=== PATIENT | female | born 1960 | race Caucasian/White ===

== ENCOUNTER 2017-09-25 09:26 | Day surgery (SDC) | payer BC ==
[2017-09-25] MEDS ORDERED: LIDOCAINE 2% (SDV) 5 ML INJ (09:59)
[2017-09-25] MEDS ORDERED: PROPOFOL 40 ML (09:59)
== END 2017-09-25 16:19 | disposition home or self-care (01) ==
LOC: GIL 09:26
DX: K22.2 Esophageal obstruction (principal); K20.9 Esophagitis, unspecified; K44.9 Diaphragmatic hernia without obstruction or gangrene; K29.70 Gastritis, unspecified, without bleeding
CPT/HCPCS: 43239; 88305

== ENCOUNTER 2017-11-07 05:42 | Day surgery (SDC) | payer BC ==
[~2017-11-07 05:42] MED LIST: SOD CHLORIDE 0.9% 1,000 ML IV
[2017-11-07 07:11] LABS: ADD MAN DIFF? NO
[2017-11-07] MEDS ORDERED: HEPARIN 1000 UNITS/ML 10 ML INJ (07:11)
[2017-11-07] MEDS ORDERED: VERAPAMIL 5 MG INJ (07:11)
[2017-11-07] MEDS ORDERED: MIDAZOLAM 1 MG/ML 2 ML INJ (07:11)
[2017-11-07] MEDS ORDERED: NITROGLYCERIN (IC) 100 MCG/ML INJ (07:11)
[2017-11-07] MEDS ORDERED: FENTAnyl 50 MCG/ML VIAL (07:11)
[2017-11-07 07:18] LABS: BASOPHIL # 0.1 10^3/ul (0.0-0.1); BASOPHILS % 0.8 % (0.0-2.0); EOSINOPHILS # 0.2 10^3/ul (0.0-0.5); EOSINOPHILS % 2.1 % (0.0-7.0); HEMATOCRIT 46.4 % (37.0-47.0); HEMOGLOBIN 15.9 g/dl (12.0-16.0); LYMPHOCYTES # 3.6 10^3/ul (0.8-2.9); LYMPHOCYTES % 47.8 % (15.0-51.0); MEAN CORPUSCULAR HEMOGLOBIN 30.5 pg (29.0-33.0); MEAN CORPUSCULAR HGB CONC 34.3 g/dl (32.0-37.0); MEAN CORPUSCULAR VOLUME 89.1 fl (82.0-101.0); MEAN PLATELET VOLUME 10.8 fl (7.4-10.4); MONOCYTE # 0.7 10^3/ul (0.3-0.9); MONOCYTES % 8.6 % (0.0-11.0); NEUTROPHIL # 3.1 10^3/ul (1.6-7.5); NEUTROPHILS % 40.6 % (39.0-77.0); PLATELET COUNT 248 10^3/UL (140-415); RED BLOOD COUNT 5.21 10^6/ul (4.20-5.40); RED CELL DISTRIBUTION WIDTH 13.8 % (11.5-14.5)
[2017-11-07 07:18] LABS: WHITE BLOOD COUNT 7.6 10^3/ul (4.8-10.8)
[2017-11-07] MEDS ORDERED: IODIXANOL LOCM 100 ML BTL (07:27)
[2017-11-07 07:44] LABS: ANION GAP 18 (8-16); CARBON DIOXIDE 25 mmol/L (21-31); CHLORIDE 108 mmol/L (97-110); GLUCOSE 93 mg/dl (70-220)
[2017-11-07] MEDS ORDERED: SOD CHLORIDE 0.9% 1,000 ML IV (07:45)
[2017-11-07 07:54] LABS: INR 0.89; PROTIME 12.1 Sec (11.9-14.9); PT RATIO 0.9
[2017-11-07 08:01] LABS: BLOOD UREA NITROGEN 10 mg/dl (7-20); CALCIUM 9.6 mg/dl (8.4-10.2); CREATININE 0.71 mg/dl (0.44-1.00); POTASSIUM 4.2 mmol/L (3.5-5.1)
[2017-11-07 08:02] LABS: SODIUM 147 mmol/L (135-144)
== END 2017-11-07 11:13 | disposition home or self-care (01) ==
LOC: SDS 05:42
DX: R07.9 Chest pain, unspecified (principal); R94.39 Abnormal result of other cardiovascular function study
CPT/HCPCS: 80048; 85025; 85610; 93005; 93458